=== PATIENT | male | born 1960 | race Caucasian/White ===

== ENCOUNTER → 2022-11-16 | Outpatient (CLI) | payer OTHER ==
--- NOTE | 2022-11-16 09:59 | MR ---
EXAMINATION TYPE: MR Prostate wo/w con DATE OF EXAM: 11/16/2022 COMPARISON: None. INDICATION: Elevated PSA. PSA: 6.90 ng/ml on 09.27.2022 from 6.10 on 02/04/2022 Recent Biopsy and Date: Pathology Report (If Applicable): TECHNIQUE: Examination was performed using a 3T MRI without an endorectal coil. Multiparametric imaging was perf ormed with T2 mutliplanar sequences, axial diffusion weighted imaging and dynamic contrast enhanced i maging, utilizing 10 mL intravenous Gadavist gadolinium contrast. FINDINGS: PROSTATE VOLUME: 5.5 cm SI x 3.9 cm AP x 4.9 cm LR Vol= 55.0 cc PSA DENSITY: 0.13 ng/ml/cc Slightly enlarged prostate gland is present. There is lobulated tissue bulging into the bladder base. Some areas of slightly diminished signal on ADC mapping in the left peripheral zone mid segment and right apical region extending laterally without increased signal on diffusion weighted imaging or mod erate to significant diminished signal on ADC mapping. Corresponding areas of slight T2 hypointensity noted. PIRADS 2. Central transitional zone shows heterogeneity without discrete suspicious hypoechoi c nodule or area. Seminal vesicles are somewhat atrophic. Urinary bladder shows mild distention with superior mild to m oderate trabeculation and small outpouchings or diverticula. No concerning pelvic fluid collection. Small fat-containing left inguinal hernia. Visualized osseous structures are intact. No suspicious sarah wel dilatation. IMPRESSION: Enlarged prostate consistent with BPH A focus of clinically significant cancer is not identified. Highest Assessment Category: 2 MRI Stage: T0 N0 M0 based on review of pelvic images. False negative rates for MRI range from 5-20% depending on risk profile. Assessment Categories: 1 ? Very low (clinically significant cancer is highly unlikely to be present) 2 ? Low (clinically significant cancer is unlikely to be present) 3 ? Intermediate (the presence of clinically significant cancer is equivocal) 4 ? High (clinically significant cancer is likely to be present) 5 ? Very high (clinically significant cancer is highly likely to be present)
== END | disposition home or self-care (01) ==
LOC: RADMRIMAIN 08:07
PROVIDERS: ATTEND Urology
DX: N40.0 Benign prostatic hyperplasia without lower urinary tract symptoms (principal); R97.20 Elevated prostate specific antigen [PSA]
CPT/HCPCS: 72197; A9585